=== PATIENT | female | born 1960 | race Caucasian/White ===

== ENCOUNTER → 2021-01-03 | Outpatient (CLI) | payer OTHER | LOC: KOH-I 09:56 | DX: M79.672 Pain in left foot (principal); M25.572 Pain in left ankle and joints of left foot; M19.072 Primary osteoarthritis, left ankle and foot | CPT/HCPCS: 73610; 73630 ==

== ENCOUNTER → 2021-02-03 | Outpatient (CLI) | payer OTHER | LOC: KOH-I 02-02 13:45 | DX: M84.375A Stress fracture, left foot, initial encounter for fracture (principal); M93.272 Osteochondritis dissecans, left ankle and joints of left foot | CPT/HCPCS: 73718 ==